=== PATIENT | male | born 1955 | race Caucasian/White ===

== ENCOUNTER 2016-12-31 18:36 | Emergency (ER) | payer OTHER ==
[2016-12-31 20:19] LABS: RED BLOOD COUNT 4.55 M/UL (4.20-5.50)
[2016-12-31 20:51] LABS: BUN/CREATININE RATIO 12 (0-10)
== END 2016-12-31 23:15 | disposition home or self-care (01) ==
LOC: ER1 18:36
PROVIDERS: Specialist/Technologist Athletic Trainer
DX: S20.212A Contusion of left front wall of thorax, initial encounter (principal); M06.9 Rheumatoid arthritis, unspecified; M19.90 Unspecified osteoarthritis, unspecified site; Z79.899 Other long term (current) drug therapy; W18.30XA Fall on same level, unspecified, initial encounter
CPT/HCPCS: 36415; 71250; 80053; 82550; 82553; 83874; 84484; 85025; 93005; 99285